=== PATIENT | male | born 1985 | race Caucasian/White ===

== ENCOUNTER 2017-03-02 11:08 | Outpatient (CLI) | payer OTHER ==
--- NOTE | 2017-03-02 14:06 | ULT ---
SCROTAL SONOGRAM WITH DUPLEX EVALUATION: Date: 03/02/17 HISTORY: Left scrotal pain. FINDINGS: The right testicle is 4.3 cm in length and the left is 4.1 cm. Each has a normal sonographic appeara nce and demonstrates good color and spectral Doppler flow. Mild dilatation of the tubules of the lef t epididymal head is noted. This is a nonspecific appearance. IMPRESSION: No evidence of testicular mass or torsion. POS: ANISA
== END 2017-03-02 11:09 | disposition home or self-care (01) ==
LOC: NAV ULT 11:08
DX: N50.812 Left testicular pain (principal)
CPT/HCPCS: 76870; 93976

== ENCOUNTER 2017-03-02 12:11 | Emergency (ER) | payer OTHER ==
[2017-03-02] MEDS ORDERED: Sodium Chloride 0.9% 1,000 ML ONE (13:03)
[2017-03-02] MEDS ORDERED: Ketorolac Tromethamine 30 MG/ML VIAL ONE (13:03)
[2017-03-02] MEDS ORDERED: Ondansetron HCl/PF 4 MG/2 ML Vial ONE (13:04)
[2017-03-02 13:14] LABS: Bilirubin Negative (Negative); Blood, Urine Large (Negative); Clarity Clear (Clear); Glucose, Urine (Dipstick) Negative (Negative); Leukocyte Negative (Negative); Nitrite Negative (Negative); Protein, Urine (Dipstick) Negative (Neg-Trace); Urobilinogen 0.2 mg/dL (0.2-1.0)
[2017-03-02 13:19] LABS: #Basophils 0.1 thou/uL (0.0-0.2); #Eosinphils 0.1 thou/uL (0.0-0.7); #Lymphocytes 1.8 thou/uL (1.20-3.40); #Monocytes 0.6 thou/uL (0.11-0.59); #Neutrophils 15.9 thou/uL (1.40-6.50); %Basophils 0.6 % (0.0-1.0); %Eosinophils 0.7 % (0.0-10.0); %Lymphocytes 9.9 % (21.0-51.0); %Monocytes 3.4 % (0.0-10.0); %Neutrophils 85.4 % (42.0-75.0); Hemoglobin 14.2 g/dL (14.0-18.0); Mean Corpuscular HGB CONC 33.1 g/dL (32.0-36.0); Mean Corpuscular Hemoglobin 27.8 pg (27.0-31.0); Mean Platelet Volume 6.7 fL (7.4-10.4); Platelet Count 310 thou/uL (130-400); RBC Distribution Width 12.4 % (11.5-14.5); Red Blood Cell (RBC) Count 5.12 mill/uL (4.70-6.10); White Blood Cell (WBC) Count 18.6 thou/uL (4.8-10.8)
[2017-03-02 13:25] LABS: Bacteria/HPF Rare-Few HPF (None Seen); RBC/HPF 21-50 HPF (0-3); Squamous Epithelial 0-3 HPF (0-3); WBC/HPF None Seen HPF (0-3)
[2017-03-02 13:26] LABS: Other Microscopic Description NO
[2017-03-02 13:28] LABS: Anion Gap 17 mmol/L (10-20); BUN (Urea Nitrogen) 8 mg/dL (8.9-20.6); Calc. Creatinine Clearance 0 mL/min (70-130); Calcium 9.4 mg/dL (7.8-10.44); Carbon Dioxide 21 mmol/L (22-29); Chloride 105 mmol/L (98-107); Estimated GFR-MDRD 86; Glucose 96 mg/dL (70-105); Potassium 3.3 mmol/L (3.5-5.1); Sodium 140 mmol/L (136-145)
[2017-03-02] MEDS ORDERED: Potassium Chloride 20 MEQ TAB ONE (13:44)
[2017-03-02] MEDS ORDERED: Ciprofloxacin 500 MG TAB ONE (13:44)
[2017-03-02] MEDS ORDERED: Tamsulosin HCl 0.4 MG CAP ONE (13:44)
[2017-03-02] MEDS ORDERED: HYDROcodone/Acetaminophen 10/325 mg Tablet ONE (13:44)
--- NOTE | 2017-03-02 14:03 | CT ---
CT ABDOMEN AND PELVIS WITHOUT CONTRAST: Date: 03/02/17 HISTORY: Left-sided testicular pain. History of kidney stones. FINDINGS: Absence of oral and IV contrast reduces the sensitivity of exam, particularly for evaluation of eda d organs and bowel. The lung bases are clear. No free air or free fluid is seen in the abdomen or pelvis. No calcified g allstones are noted. There are bilateral tiny renal calculi. There is mild left-sided hydroureterone phrosis and perinephric and periureteral inflammatory changes secondary to a 2.0 mm calculus at the left UVJ. No calculi seen in the right ureter or urinary bladder. No right-sided hydroureteronephros is is seen. No free air or free fluid is noted in the abdomen or pelvis. There is no evidence of aneurysmal dila tation of the abdominal aorta. No osteolytic or osteoblastic lesions are seen. The appendix appears normal. An appendicolith is present. A small hiatal hernia is noted. IMPRESSION: 1. Nonobstructing bilateral renal calculi. 2. 2.0 mm left UVJ calculus. 3. Small hiatal hernia. 4. Appendicolith without evidence of appendicitis. POS: CAROLANN
== END 2017-03-02 15:35 | disposition home or self-care (01) ==
LOC: NAV ERS 12:11
DX: N13.2 Hydronephrosis with renal and ureteral calculous obstruction (principal)
CPT/HCPCS: 74176; 76870; 80048; 81003; 81015; 85025; 87086; 93976; 96361; 96374; 96375; J1885; J2405; J7050